=== PATIENT | female | born 1930 | race Caucasian/White ===

== ENCOUNTER 2018-01-21 22:43 | Emergency (ER) | payer MEDICARE, BC ==
[2018-01-21 23:34] LABS: ABSOLUTE EOSINOPHILS # (AUTO) 0.1 10^3/uL (0.0-0.6); ABSOLUTE LYMPHOCYTES (AUTO) 2.2 10^3/uL (0.5-4.7); ABSOLUTE MONOCYTES (AUTO) 1.6 10^3/uL (0.1-1.4); ABSOLUTE NEUT (AUTO) 7.2 10^3/uL (1.7-8.2); BASOPHILS % (AUTO) 0.2 % (0-2); EOSINOPHILS % (AUTO) 0.5 % (0-6); HEMATOCRIT 40.5 % (36.0-47.0); HEMOGLOBIN 13.7 g/dL (12.0-15.5); LYMPHOCYTES % (AUTO) 20.1 % (13-45); MEAN CORPUSCULAR HEMOGLOBIN 32.4 pg (27.0-33.4); MEAN CORPUSCULAR HGB CONC 33.8 g/dL (32.0-36.0); MEAN CORPUSCULAR VOLUME 96 fl (80-97); MONOCYTES % (AUTO) 14.2 % (3-13); PLATELET COUNT 190 10^3/uL (150-450); RED BLOOD COUNT 4.22 10^6/uL (3.72-5.28); RED CELL DISTRIBUTION WIDTH 14.4 % (11.5-14.0); TOTAL CELLS COUNTED % (AUTO) 100 %
[2018-01-21 23:43] LABS: ALANINE AMINOTRANSFERASE 49 U/L (9-52); ALBUMIN 3.7 g/dL (3.5-5.0); ALKALINE PHOSPHATASE 89 U/L (38-126); ANION GAP 10 (5-19); ASPARTATE AMINO TRANSFERASE 42 U/L (14-36); BILIRUBIN,DIRECT 0.4 mg/dL (0.0-0.4); BILIRUBIN,TOTAL 1.1 mg/dL (0.2-1.3); BLOOD UREA NITROGEN 9 mg/dL (7-20); CALCIUM 9.6 mg/dL (8.4-10.2); CARBON DIOXIDE 23 mmol/L (22-30); CHLORIDE 104 mmol/L (98-107); GLUCOSE 108 mg/dL (75-110); LIPASE 26.9 U/L (23-300); POTASSIUM 4.1 mmol/L (3.6-5.0); TOTAL PROTEIN 6.9 g/dL (6.3-8.2)
[2018-01-21 23:43] LABS: APPEARANCE,URINE TURBID; BILIRUBIN,URINE NEGATIVE (NEGATIVE); COLOR,URINE YELLOW; GLUCOSE, URINE NEGATIVE (NEGATIVE); KETONES,URINE NEGATIVE (NEGATIVE); LEUKOCYTE ESTERASE,URINE NEGATIVE (NEGATIVE); NITRITE,URINE NEGATIVE (NEGATIVE); PROTEIN,URINE NEGATIVE (NEGATIVE); URINE SPECIFIC GRAVITY 1.014
--- NOTE | 2018-01-22 02:06 | RADIOLOGY REPORT (SQ) ---
CLINICAL DATA: 87-year-old female with abdominal pain and back pain, right and left lower quadrant pain. She has undergone a previous appendectomy, hysterectomy and cholecystectomy. TECHNICAL DATA: Axial CT imaging of the abdomen and pelvis was performed following the administration of intravenous contrast.. Sagittal and coronal reconstructed images were then performed. The CT study is performed according to ALARA (as low as reasonably achievable) or ALARA/IMAGE GENTLY, with automatic adjustment of mA and/or kV according to patient size. Comparison: Prior CT scan of the abdomen and pelvis performed on 11/03/2014. FINDINGS: Lung bases: The lung bases are clear. There is minimal bibasilar atelectasis and/or fibrosis. There are moderate atherosclerotic calcifications along the coronary arteries. There are atherosclerotic calcifications along the visualized thoracic aorta. Liver:The liver is normal in size and configuration. No focal hepatic abnormalities are identified. Liver attenuation is within normal limits. There is a punctate calcification within the medial segment of the left hepatic lobe consistent with a granuloma. Spleen:The spleen is normal is size, configuration and attenuation. Gallbladder and bile duct: The gallbladder is surgically absent. There is no biliary ductal dilatation. Pancreas: The pancreas is grossly normal in size and configuration. Adrenal Glands:The adrenal glands are normal in size and configuration. Kidneys:The kidneys are normal in size and configuration. There is no evidence of hydronephrosis. There is no evidence of nephrolithiasis. There is a grossly stable 1 cm benign-appearing cyst in the anterolateral cortex of the midpole of the left kidney. Stomach:The stomach is grossly normal. There is no definite hiatal hernia. Bowel:The bowel gas pattern is non specific and non obstructive. Again demonstrated is sigmoid colon diverticulosis without evidence of diverticulitis. Appendix: The appendix is surgically absent. Free air:There is no evidence of free air. Free fluid: There is no evidence of free fluid. Vasculature: The aorta is normal in caliber and contour. There are atherosclerotic calcifications along the abdominal aorta and major branch vessels. The inferior vena cava is grossly unremarkable. Lymphadenopathy: No pathologic lymphadenopathy is identified. Bladder: The bladder is partially distended and smooth in contour. Reproductive: The uterus is surgically absent Bones: No acute osseous abnormalities are identified. There are mild degenerative changes along the visualized thoracolumbar spine. There is a prominent disc osteophyte complex at L4-L5 and to a lesser degree L3-L4 resulting in canal stenosis. Soft tissues: No focal soft tissue abnormalities are identified. There is a very small fat-containing ventral umbilical hernia. IMPRESSION: 1. No evidence of acute intra-abdominal or intrapelvic pathology. 2. Remote cholecystectomy, appendectomy and hysterectomy. 3. Sigmoid colon diverticulosis. 4. Small fat-containing ventral umbilical hernia. 5. Degenerative changes of the skeletal and vascular structures.
--- NOTE | 2018-01-22 02:29 | ER Document Report ---
ED General - General Chief Complaint: Abdominal Pain >50 Stated Complaint: ABDOMINAL PAIN Time Seen by Provider: 01/21/18 23:05 Notes: Patient is an 87-year-old female with a past medical history of hypertension, past surgical history of cholecystectomy, appendectomy, hysterectomy who presents with approximately 3 days of lower abdominal pain that radiates to her back. She describes this as a dull, throbbing, constant pain. Nothing improves or worsens the pain. She denies any history of similar pains in the past. She denies any associated nausea, vomiting, but does note that she has been constipated. She also notes urinary urgency. She has not seen her general doctor regarding today's concerns. She denies fever or constitutional symptoms. No chest pain or shortness of breath. TRAVEL OUTSIDE OF THE [place] IN LAST 30 DAYS: No - Related Data Allergies/Adverse Reactions: No Known Allergies Allergy (Verified 03/09/17 13:32) Past Medical History - General Information source: Patient, Relative - Social History Smoking Status: Never Smoker Frequency of alcohol use: None Drug Abuse: None Lives with: Family Family History: Reviewed & Not Pertinent Patient has suicidal ideation: No Patient has homicidal ideation: No - Past Medical History Cardiac Medical History: Reports: Hx Hypercholesterolemia, Hx Hypertension Pulmonary Medical History: Denies: Hx Tuberculosis Endocrine Medical History: Reports: Hx Hypothyroidism Renal/ Medical History: Denies: Hx Peritoneal Dialysis GI Medical History: Reports: Hx Gastroesophageal Reflux Disease Musculoskeletal Medical History: Reports Hx Arthritis Past Surgical History: Reports: Hx Appendectomy, Hx Cardiac Surgery - stent x3, Hx Cholecystectomy, Hx Hysterectomy, Hx Orthopedic Surgery - R. TKR. Denies: Hx Pacemaker - Immunizations Hx Diphtheria, Pertussis, Tetanus Vaccination: Yes Hx Pneumococcal Vaccination: 01/30/11 Review of Systems - Review of Systems Notes: Constitutional: Negative for fever. HENT: Negative for sore throat. Eyes: Negative for visual changes. Cardiovascular: Negative for chest pain. Respiratory: Negative for shortness of breath. Gastrointestinal: Positive for abdominal pain Genitourinary: Negative for dysuria. Musculoskeletal: Negative for back pain. Skin: Negative for rash. Neurological: Negative for headaches, weakness or numbness. 10 point ROS negative except as marked above and in HPI. Physical Exam - Vital signs Vitals: Pulse Ox 92 01/21/18 22:49 Interpretation: Normal Notes: PHYSICAL EXAMINATION: GENERAL: Well-appearing, well-nourished and in no acute distress. HEAD: Atraumatic, normocephalic. EYES: Pupils equal round and reactive to light, extraocular movements intact, sclera anicteric, conjunctiva are normal. ENT: nares patent, oropharynx clear without exudates. Moist mucous membranes. NECK: Normal range of motion, supple without lymphadenopathy LUNGS: Breath sounds clear to auscultation bilaterally and equal. No wheezes rales or rhonchi. HEART: Regular rate and rhythm without murmurs ABDOMEN: Soft, nontender, normoactive bowel sounds. No guarding, no rebound. No masses appreciated. EXTREMITIES: Normal range of motion, no pitting or edema. No cyanosis. NEUROLOGICAL: No focal neurological deficits. Moves all extremities spontaneously and on command. PSYCH: Normal mood, normal affect. SKIN: Warm, Dry, normal turgor, no rashes or lesions noted. Course - Re-evaluation Re-evalutation: 01/22/18 03:11 Presentation of a very well-appearing 87-year-old female in no acute distress with concerns of 3 days of abdominal pain. She reports that this is effectively a generalized abdominal pain. On examination there is no focal areas of tenderness, rebound or guarding. CT the abdomen pelvis is effectively unremarkable without any evidence of acute pathology. No evidence of bowel inflammation, obstruction or perforation. Laboratories likewise are unremarkable without evidence of a urinary tract infection, pancreatitis or hepatitis. I have explained the patient and her daughter at the bedside that there is significant diagnostic uncertainty regarding her presentation today. However based on normal labs, normal vitals, benign abdominal exam, normal CT scan of the abdomen pelvis with IV contrast, normal cardiac markers, I do not have any clear etiology for her presentation. I have advised that she may wish to take a laxative at home as constipation could be a possible consideration although I have emphasized that this is by no means a definitive diagnosis. I have asked that the patient follow with her primary care doctor within the next 24-48 hours for an abdominal recheck. At this time will discharge with return precautions and follow-up recommendations. Verbal discharge instructions given a the bedside and opportunity for questions given. Medication warnings reviewed. Patient is in agreement with this plan and has verbalized understanding of return precautions and the need for primary care follow-up in the next 24-72 hours. - Vital Signs Vital signs: Temp Pulse Resp BP Pulse Ox 19 138/56 H 98 01/22/18 02:00 01/22/18 00:00 01/22/18 02:00 - Laboratory Result Diagrams: 01/21/18 23:15 01/21/18 23:15 Laboratory results interpreted by me: 01/21/18 01/21/18 01/21/18 23:15 23:15 23:18 WBC 11.0 H RDW 14.4 H Monocytes % 14.2 H Absolute Monocytes 1.6 H AST 42 H Urine Urobilinogen 2.0 H - Diagnostic Test Radiology reviewed: Reports reviewed Discharge - Discharge Clinical Impression: Generalized abdominal pain, Abdominal pain of unknown etiology Condition: Fair Disposition: HOME, SELF-CARE Additional Instructions: You have been seen in the Emergency Department (ED) for abdominal pain. Your evaluation did not identify a clear cause of your symptoms but was generally reassuring. Please follow up with your doctor as soon as possible regarding today's emergent visit and the symptoms that are bothering you. Return to the ED if your abdominal pain worsens or fails to improve, you develop bloody vomiting, bloody diarrhea, you are unable to tolerate fluids due to vomiting, fever greater than 101, or other symptoms that concern you. Referrals: SOREN HOPSON MD [Primary Care Provider] - Follow up tomorrow
[2018-01-22 03:01] VITALS: BP 138/56
== END 2018-01-22 04:00 | disposition home or self-care (01) ==
LOC: ER 22:43
DX: R10.84 Generalized abdominal pain (principal); I10 Essential (primary) hypertension
CPT/HCPCS: 36415; 74177; 80053; 81001; 83690; 84484; 85025; 87086; 99284

== ENCOUNTER 2018-05-31 09:28 | Emergency (ER) | payer MEDICARE, BC ==
[2018-05-31 09:43] LABS: ABSOLUTE BASOPHILS # (AUTO) 0.1 10^3/uL (0.0-0.2); ABSOLUTE EOSINOPHILS # (AUTO) 0.2 10^3/uL (0.0-0.6); ABSOLUTE LYMPHOCYTES (AUTO) 2.2 10^3/uL (0.5-4.7); ABSOLUTE MONOCYTES (AUTO) 0.8 10^3/uL (0.1-1.4); ABSOLUTE NEUT (AUTO) 8.9 10^3/uL (1.7-8.2); BASOPHILS % (AUTO) 0.5 % (0-2); EOSINOPHILS % (AUTO) 1.8 % (0-6); HEMATOCRIT 41.7 % (36.0-47.0); MEAN CORPUSCULAR HEMOGLOBIN 31.8 pg (27.0-33.4); MEAN CORPUSCULAR HGB CONC 33.6 g/dL (32.0-36.0); MEAN CORPUSCULAR VOLUME 95 fl (80-97); MONOCYTES % (AUTO) 6.9 % (3-13); PLATELET COUNT 228 10^3/uL (150-450); SEGMENTED NEUTROPHILS % (AUTO) 72.8 % (42-78); TOTAL CELLS COUNTED % (AUTO) 100 %; WHITE BLOOD COUNT 12.2 10^3/uL (4.0-10.5)
--- NOTE | 2018-05-31 09:47 | ER Document Report ---
ED General - General Stated Complaint: ABDOMINAL PAIN Time Seen by Provider: 05/31/18 09:34 Primary Care Provider: SOREN HOPSON MD [Primary Care Provider] - Follow up as needed Notes: 87-year-old female presents to the ER complaining of lower abdominal discomfort. The patient stated that she feels as if something is falling out of her vagina. She states it would not come out. She has a history of hysterectomy in the past is never had any kind of prolapse of anything. She denies any difficulty urinating denies fever chills denies rectal pain or black bloody or tarry stools. Has occasional nausea but no vomiting. Denies any falls or trauma. Patient stated the discomfort is really more genital and it feels as if something is trying to protrude from her vagina and will not come out. She denies any inserting any foreign objects into the area. She denies any other BENEFITS COORDINATOR related issues. TRAVEL OUTSIDE OF THE [place] IN LAST 30 DAYS: No - Related Data Allergies/Adverse Reactions: No Known Allergies Allergy (Verified 03/09/17 13:32) Past Medical History - Social History Smoking Status: Never Smoker Family History: Reviewed & Not Pertinent - Past Medical History Cardiac Medical History: Reports: Hx Hypercholesterolemia, Hx Hypertension Pulmonary Medical History: Denies: Hx Tuberculosis Endocrine Medical History: Reports: Hx Hypothyroidism Renal/ Medical History: Denies: Hx Peritoneal Dialysis GI Medical History: Reports: Hx Gastroesophageal Reflux Disease Musculoskeletal Medical History: Reports Hx Arthritis Past Surgical History: Reports: Hx Appendectomy, Hx Cardiac Surgery - stent x3, Hx Cholecystectomy, Hx Hysterectomy, Hx Orthopedic Surgery - R. TKR. Denies: Hx Pacemaker - Immunizations Hx Diphtheria, Pertussis, Tetanus Vaccination: Yes Hx Pneumococcal Vaccination: 01/30/11 Review of Systems - Review of Systems Constitutional: denies: Chills, Fever Gastrointestinal: Abdominal pain. denies: Diarrhea, Nausea, Vomiting, Constipation Female Genitourinary: Other - Feels as if something is trying to come out vagina -: Yes All other systems reviewed and negative Physical Exam - Vital signs Vitals: Temp Resp BP Pulse Ox 98.4 F 15 137/62 H 97 05/31/18 09:43 05/31/18 09:43 05/31/18 09:43 05/31/18 09:43 - Notes Notes: GENERAL_APPEARANCE: well_nourished, alert, cooperative, no_acute_distress, no_obvious_discomfort. VITALS: reviewed, see vital signs table. HEAD: no_swelling\tenderness on the head. EYES: conjunctiva_clear. NOSE: no_nasal_discharge. MOUTH: (-)decreased moisture. ABDOMEN: soft, no_abd_tenderness, (-)guarding, (-)rebound, no_organomegaly, no_abd_masses. PELVIC: There is a lot of atrophy. There is no signs of any significant cystocele or rectocele. I could not get the speculum all the way in because of considerable amount of atrophy due to age. The patient will not tolerate the discomfort. It did not look to be cysts significant vaginitis. No obvious masses. Bimanual exam I felt no masses. I recommended follow-up with BENEFITS COORDINATOR EXTREMITIES: no_swelling tenderness in the extremities, no_edema. SKIN: warm, dry, good_color, no_rash. MENTAL_STATUS: speech_clear, oriented_X_3, normal_affect, responds_appropriately to questions. Course - Re-evaluation Re-evalutation: 05/31/18 09:48 Patient has a foreign body sensation her vagina. She likely has a rectocele or cystocele. We will do a pelvic exam to look. 05/31/18 10:15 Pelvic exam was limited due to the amount of atrophy and discomfort. The speculum would not go all the way in the patient will not tolerate this. I saw no masses from what I saw there is no obvious cystocele rectocele before starting. Bimanual exam showed no masses. We will check the urine my recommendation is to go to SHELTER DIRECTOR physician for further care. 05/31/18 11:05 The patient does have a UTI and she will be treated accordingly for that. Follow-up with BENEFITS COORDINATOR or her family doctor - Vital Signs Vital signs: Temp Pulse Resp BP Pulse Ox 98.4 F 15 137/62 H 97 05/31/18 09:43 05/31/18 09:43 05/31/18 09:43 05/31/18 09:43 - Laboratory Result Diagrams: 05/31/18 08:55 05/31/18 08:55 Laboratory results interpreted by me: 05/31/18 05/31/18 08:55 10:15 WBC 12.2 H Absolute Neutrophils 8.9 H Urine Protein 100 H Urine Blood SMALL H Ur Leukocyte Esterase LARGE H Discharge - Discharge Clinical Impression: UTI (urinary tract infection) Qualifiers: Urinary tract infection type: acute cystitis Hematuria presence: without hematuria Qualified Code(s): N30.00 - Acute cystitis without hematuria Condition: Good Disposition: HOME, SELF-CARE Instructions: Urinary Tract Infection ([facility]) Prescriptions: Sulfamethoxazole/Trimethoprim [Bactrim Ds Tablet] 1 each PO Q12H #14 tablet Referrals: SOREN HOPSON MD [Primary Care Provider] - Follow up as needed
[2018-05-31 10:47] LABS: APPEARANCE,URINE TURBID; BILIRUBIN,URINE NEGATIVE (NEGATIVE); COLOR,URINE YELLOW; GLUCOSE, URINE NEGATIVE (NEGATIVE); KETONES,URINE NEGATIVE (NEGATIVE); LEUKOCYTE ESTERASE,URINE LARGE (NEGATIVE); NITRITE,URINE NEGATIVE (NEGATIVE); PROTEIN,URINE 100 mg/dL (NEGATIVE); URINE SPECIFIC GRAVITY 1.017; UROBILINOGEN,URINE NEGATIVE mg/dL (<2.0)
[2018-05-31 11:33] VITALS: BP 137/53
== END 2018-05-31 11:28 | disposition home or self-care (01) ==
LOC: ER 09:28
DX: N30.00 Acute cystitis without hematuria (principal); R10.30 Lower abdominal pain, unspecified; E78.00 Pure hypercholesterolemia, unspecified; I10 Essential (primary) hypertension; Z90.49 Acquired absence of other specified parts of digestive tract; Z90.710 Acquired absence of both cervix and uterus; Z96.651 Presence of right artificial knee joint
CPT/HCPCS: 36415; 81001; 85025; 99283